=== PATIENT | male | born 1970 | race Caucasian/White ===

== ENCOUNTER 2016-07-25 10:57 | Emergency (ER) | payer OTHER ==
[~2016-07-25] VITALS: Ht 170.2 cm; Wt 59.0 kg
--- NOTE | 2016-07-25 11:09 | ED Lower Extremity ---
General Chief Complaint: Laceration Stated Complaint: NAIL IN L CALF Source: patient Exam Limitations: no limitations History of Present Illness Time seen by provider: 11:08 Initial Comments To ER from work at [employer] with reports of a nail to the posterior medial left calf from a nail gun. Tetanus was updated last year. Onset: just prior to arrival Severity: moderate Pain/Injury Location: left leg Modifying Factors: Worse With Movement Allergies and Home Medications Allergies Coded Allergies: Penicillins (Verified Allergy, Severe, 07/25/16) Home Medications No Active Prescriptions or Reported Meds Time Seen by Provider: 11:08 Constitutional: see HPI EENTM: see HPI Respiratory: no symptoms reported Cardiovascular: no symptoms reported Genitourinary: no symptoms reported Musculoskeletal: see HPI Skin: see HPI Psychiatric/Neurological: No Symptoms Reported Past Eumfpba-Cimxel-Nqniye Hx Patient Social History Recent Foreign Travel: No Contact w/Someone Who Travel: No Physical Exam Vital Signs Vital Sign - Last 12Hours 07/25/16 11:07 Temp 96.6 Pulse 102 Resp 22 B/P (MAP) 104/78 Pulse Ox 97 O2 Delivery Room Air Capillary Refill : General Appearance: WD/WN, no apparent distress HEENT: PERRL/EOMI, normal ENT inspection Neck: non-tender, full range of motion Respiratory: no respiratory distress, no accessory muscle use Gastrointestinal: normal bowel sounds, non tender, soft Hips: bilateral hip non-tender, bilateral hip normal inspection, bilateral hip normal range of motion Legs: bilateral leg normal range of motion, left leg pain, left leg soft tissue tenderness, left leg other (there is infected nail in the posterior medial proximal left calf. The surrounding is nice and soft without firmness. He is able to dorsiflex the great toe and has sensation of all of his toes and feet. He has a +2 in strength posterior tibial pulse.) Knees: bilateral knee non-tender, bilateral knee normal inspection, bilateral knee normal range of motion Ankles: bilateral ankle non-tender, bilateral ankle normal inspection, bilateral ankle normal range of motion Neurologic/Psychiatric: alert, normal mood/affect, oriented x 3 Skin: normal color, warm/dry I&D : I & D Procedure: betadine prep Progress The area around the nail puncture wound was anesthetized with 5 mL of 2 percent lidocaine without epinephrine. Surface area was cleaned with Betadine and nail head was grasped with forceps and removed with simple traction. Minimal oozing of blood from the puncture wound afterwards. Remain soft. He is able to feel all of his toes flex and extend them. Dorsalis pedis pulse remains +1 and posterior tibial pulse remains +2. Triple antibiotic ointment and a gauze dressing applied. Rocephin is infusing then we will discharge to home. Progress/Results/Core Measures Results/Orders My Orders Orders - ALPHONSO SIMON APRN Saline Lock/Iv-Start (07/25/16 11:06) Morphine Injection (Morphine Injection (07/25/16 11:15) Lidocaine 2% Injection 20 Ml (Xylocaine (07/25/16 11:15) Cefazolin Injection (Ancef Injection) (07/25/16 11:15) Tibia/Fibula, Left, 2 Views (07/25/16 11:09) Ceftriaxone Injection (Rocephin Injectio (07/25/16 11:30) Ceftriaxone Injection (Rocephin Injectio (07/25/16 11:29) Ns (Ivpb) (Sodium Chloride 0.9% Ivpb Bag (07/25/16 11:29) Medications Given in ED Current Medications Medications Dose Ordered Sig/Carmen Route Start Time Stop Time Status Last Admin Dose Admin Cefazolin Sodium 1000 mg/Sodium Chloride 50 ml @ 100 mls/hr ONCE ONCE IV 07/25/16 11:15 07/25/16 11:27 DC 07/25/16 11:21 100 MLS/HR Ceftriaxone Sodium 1000 mg/ Sodium Chloride 50 ml @ 100 mls/hr ONCE ONCE IV 07/25/16 11:30 07/25/16 11:59 07/25/16 11:36 100 MLS/HR Lidocaine HCl 20 ml ONCE ONCE INJ 07/25/16 11:15 07/25/16 11:16 DC 07/25/16 11:18 6 ML Morphine Sulfate 4 mg ONCE ONCE IVP 07/25/16 11:15 07/25/16 11:16 DC 07/25/16 11:17 4 MG Vital Signs/I&O Vital Sign - Last 12Hours 07/25/16 11:07 Temp 96.6 Pulse 102 Resp 22 B/P (MAP) 104/78 Pulse Ox 97 O2 Delivery Room Air Departure Impression Impression: Primary Impression: Soft tissues foreign body Disposition: HOME, SELF-CARE Condition: Stable Departure-Patient Inst. Decision time for Depature: 11:38 Referrals: NO,LOCAL PHYSICIAN (PCP/Family) Primary Care Physician Patient Instructions: NO INSTRUCTIONS GIVEN Add. Discharge Instructions: 1. Reasons to return to the emergency room: Increasing pain in the calf, swelling or firmness of the calf, tingling or loss of sensation to your foot or toes, increasing redness to the calf, fevers or chills 2. Antibiotics and pain medication as directed 3. Wear the walking boot for the next 2-3 days. You may shower and get the wound wet. Then reapply simple Band-Aid over this All discharge instructions reviewed with patient and/or family. Voiced understanding. Scripts Hydrocodone/Acetaminophen (Dexter 5-325 Tablet) 1 Each Tablet 1 EACH PO Q4H Y for PAIN-MODERATE TO SEVERE, #14 TAB Prov: ALPHONSO SIMON APRN 07/25/16 Clindamycin HCl (Clindamycin HCl) 300 Mg Capsule 300 MG PO TID, #12 CAP Prov: ALPHONSO SIMON APRN 07/25/16 ALPHONSO SIMON APRN Jul 25, 2016 11:09
[2016-07-25] MEDS ORDERED: LIDOCAINE 2% 20 ML (XYLOCAINE) VIAL INJ ONE (11:15)
[2016-07-25] MEDS ORDERED: ceFAZolin INJECTION 1,000 MG in NS (IVPB) 50 ML IV ONE (11:15)
[2016-07-25] MEDS ORDERED: morphine INJ 10 MG/ML 1ML (SYR OR VIAL) IVP ONE (11:15)
[2016-07-25] MEDS ORDERED: cefTRIAXone 1 GM (ROCEPHIN) VIAL ONE (11:29)
[2016-07-25] MEDS ORDERED: NS (IVPB) 50 ML ONE (11:29)
[2016-07-25] MEDS ORDERED: cefTRIAXone INJECTION 1,000 MG in NS (IVPB) 50 ML IV ONE (11:30)
--- NOTE | 2016-07-25 11:35 | Diagnostic Imaging Report ---
INDICATION: Shot with nail gun in leg. AP and lateral views of the left tibia and fibula are performed. Metallic nail is visualized in the soft tissues posteriorly in the upper calf. The bony structures appear unremarkable. IMPRESSION: Metallic foreign body in the soft tissues in the posterior calf superiorly. No bony involvement. Dictated by: Dictated on workstation # [id number]
[2016-07-25] MEDS ORDERED: HYDR-757 PO (11:42)
[2016-07-25] MEDS ORDERED: CLIN300C11 PO (11:42)
[2016-07-25] MEDS ORDERED: TETANUS,DIPTH,PERTUSS P/F (BOOSTRIX) 0.5 ML VIAL IM ONE (12:00)
[2016-07-25 12:08] VITALS: BP 94/68
== END 2016-07-25 12:08 | disposition home or self-care (01) ==
LOC: EDUNIT# 10:57 → ER 11:00
DX: S81.842A Puncture wound with foreign body, left lower leg, initial encounter (principal); W34.09XA Accidental discharge from other specified firearms, initial encounter
CPT/HCPCS: 73590; 90715

== ENCOUNTER 2016-12-02 15:44 | Emergency (ER) | payer SELFPAY ==
[~2016-12-02] VITALS: Ht 170.2 cm; Wt 59.0 kg
[~2016-12-02 15:44] MED LIST: CLIN300C11 PO; HYDR-757 PO
--- NOTE | 2016-12-02 16:54 | Diagnostic Imaging Report ---
PROCEDURE: CT head and CT cervical spine without contrast. TECHNIQUE: Multiple contiguous axial images were obtained through the brain and cervical spine without the use of intravenous contrast. Sagittal and coronal reformations through the cervical spine were then performed. INDICATION: Head and neck pain after fall off of roof five days ago. COMPARISON: None available. FINDINGS: CT head: No hyperdense hemorrhage or space-occupying mass. No hydrocephalus or midline shift. Rapp-white matter differentiation is well preserved. Basilar cisterns are widely patent. No acute skull fracture. Mastoid air cells are clear. Patchy mucosal thickening of the ethmoid air cells. Other paranasal sinuses are clear. Orbits are unremarkable. CT cervical spine: No acute fracture or traumatic malalignment. Intervertebral disc space heights are well maintained. Minimal disc bulging at C5-C6. No moderate or high-grade spinal stenosis. No cervical lymphadenopathy. Lung apices are clear. IMPRESSION: 1. No acute intracranial process or skull fracture. 2. No acute fracture or traumatic malalignment of the cervical spine. Dictated by: Dictated on workstation # [id number]
--- NOTE | 2016-12-02 17:03 | ED Fall/Injury ---
General Chief Complaint: Trauma-Non Activation Stated Complaint: FELL OFF A ROOF/HEAD/NECK PAIN Nursing Triage Note: C/O FELL OFF A ROOF ON TUES. C/O HEAD/NECK/LOW BACK PAIN. 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 PT ACTS VERY FIGIDTY. ADMITS TO RECENT METHAMPHETAMINE USE. Source: patient Exam Limitations: no limitations History of Present Illness Time seen by provider: 16:20 Initial Comments This 46-year-old man presents to the emergency room with complaints of headache after falling off a 12 or 13 foot roof 6 days ago. He is uncertain of loss of consciousness but states if he did lose consciousness it was very brief. He has had some posterior headache and mild neck pain. He reports falling while walking recently. He has taken some ibuprofen and tramadol without benefit but the last dose was about 3 days ago. He has had some recent nausea. He reports bowel movements have been running. He denies any recent alcohol use but was using methamphetamines around the time of the incident. He has dystonic movements at present consistent with methamphetamine use. C-collar was placed during assessment. Location Injury Occurred: HOME RESIDENCE Allergies and Home Medications Allergies Coded Allergies: Penicillins (Verified Allergy, Severe, 07/25/16) Constitutional: no symptoms reported Eyes: No Symptoms Reported Ears, Nose, Mouth, Throat: no symptoms reported Respiratory: no symptoms reported Cardiovascular: no symptoms reported Gastrointestinal: see HPI Genitourinary: no symptoms reported Musculoskeletal: see HPI Skin: no symptoms reported Psychiatric/Neurological: See HPI Past Mzprrkg-Rblatw-Oyyjdw Hx Patient Social History Alcohol Use: Occasionally Uses Number of Drinks Today: AA Alcohol Beverage of Choice: Beer Recreational Drug Use: Yes Drug of Choice: methamphetamines Smoking Status: Current Everyday Smoker Type Used: Cigarettes 2nd Hand Smoke Exposure: Yes Recent Foreign Travel: No Contact w/Someone Who Travel: No Recent Infectious Disease Expo: No Recent Hopitalizations: No Immunizations Up To Date Tetanus Booster (TDap): Less than 5yrs Seasonal Allergies Seasonal Allergies: No Surgeries History of Surgeries: No Respiratory History of Respiratory Disorde: Yes Respiratory Disorders: Chronic Bronchitis Cardiovascular History of Cardiac Disorders: No Neurological History of Neurological Disord: Yes Neurological Disorders: Neuropathy Genitourinary History of Genitourinary Disor: No Gastrointestinal History of Gastrointestinal Di: No Musculoskeletal History of Musculoskeletal Dis: Yes Musculoskeletal Disorders: Chronic Back Pain Endocrine History of Endocrine Disorders: No HEENT History of HEENT Disorders: Yes ("VISION PROBLEMS") Cancer History of Cancer: No Psychosocial History of Psychiatric Problem: No Integumentary History of Skin or Integumenta: No Blood Transfusions History of Blood Disorders: No Physical Exam Vital Signs Vital Sign - Last 12Hours 12/02/16 16:44 Temp 97.5 Pulse 70 Resp 16 B/P (MAP) 123/81 O2 Delivery Room Air Capillary Refill : Less Than 3 Seconds General Appearance: WD/WN HEENT: PERRL/EOMI, normal ENT inspection, TMs normal, pharynx normal Neck: supple, normal inspection, tender midline (minimal) Cardiovascular: regular rate, rhythm, no edema, no murmur Respiratory: chest non-tender, lungs clear, normal breath sounds, no respiratory distress, no accessory muscle use Gastrointestinal: normal bowel sounds, non tender, soft Extremities: normal inspection, no pedal edema 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/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 as tested, no motor/sensory deficits, alert, normal mood/affect, oriented x 3, other (dystonic movements) Skin: normal color, warm/dry, other (healing laceration on the palm of the right hand) [place] Coma Score Best Eye Response: (4) Open Spontaneously Best Verbal Response: (5) Oriented Best Motor Response: (6) Obeys Commands [place] Total: 15 Progress/Results/Core Measures Results/Orders My Orders Orders - TERRI COWAN MD Ct Head/Cervical Spine Wo (12/02/16 16:27) Ketorolac Injection (Toradol Injection) (12/02/16 17:15) Vital Signs/I&O Vital Sign - Last 12Hours 12/02/16 12/02/16 16:44 16:52 Temp 97.5 97.5 Pulse 70 70 Resp 16 16 B/P (MAP) 123/81 123/81 (95) O2 Delivery Room Air Room Air Blood Pressure Mean: 95 Progress Note : Time: 17:11 Progress Note C-collar was removed after review of CT imaging. Patient has a healing laceration on the right hand. For this reason I inquired about tetanus immunization. He reports he received tetanus immunization within the last year. Patient was resting comfortably at the time of c-collar removal. He did request something for further management of his pain. Toradol 30 mg IM was administered. Diagnostic Imaging Diagonstic Imaging: CT Plain Films/CT/US/NM/MRI: c-spine, head Comments CT head and C-spine viewed by me and report reviewed. See report below: NAME: SATHISH DEL ROSARIO [facility] REC#: [id number] PT STATUS: REG ER : 1970 PHYSICIAN: TERRI COWAN MD ADMIT DATE: 12/02/16/ER Signed Date of Exam: 12/02/16 CT HEAD/CERVICAL SPINE WO PROCEDURE: CT head and CT cervical spine without contrast. TECHNIQUE: Multiple contiguous axial images were obtained through the brain and cervical spine without the use of intravenous contrast. Sagittal and coronal reformations through the cervical spine were then performed. INDICATION: Head and neck pain after fall off of roof five days ago. COMPARISON: None available. FINDINGS: CT head: No hyperdense hemorrhage or space-occupying mass. No hydrocephalus or midline shift. Rapp-white matter differentiation is well preserved. Basilar cisterns are widely patent. No acute skull fracture. Mastoid air cells are clear. Patchy mucosal thickening of the ethmoid air cells. Other paranasal sinuses are clear. Orbits are unremarkable. CT cervical spine: No acute fracture or traumatic malalignment. Intervertebral disc space heights are well maintained. Minimal disc bulging at C5-C6. No moderate or high-grade spinal stenosis. No cervical lymphadenopathy. Lung apices are clear. IMPRESSION: 1. No acute intracranial process or skull fracture. 2. No acute fracture or traumatic malalignment of the cervical spine. Dictated by: Dictated on workstation # [id number] Dict: 12/02/161645 Trans: 12/02/161655 Interpreted by: JAMEY PIERRE MD Electronically signed by: JAMEY PIERRE MD 12/02/161655 Departure Impression Impression: Primary Impression: Fall from roof Qualified Codes: W13.2XXA - Fall from, out of or through roof, initial encounter Additional Impressions: Headache Qualified Codes: R51 - Headache Methamphetamine abuse Disposition: 01 HOME, SELF-CARE Condition: Improved Departure-Patient Inst. Decision time for Depature: 17:05 Referrals: NO,LOCAL PHYSICIAN (PCP/Family) Primary Care Physician Patient Instructions: Methamphetamine, Minor Head Injury (DC) Add. Discharge Instructions: Drink plenty of clear liquids. You may take ibuprofen up to 600 mg every 6 hours as needed for pain. Add Tylenol (acetaminophen) up to 1000 mg every 6 hours as needed for additional pain relief. Avoid excessive exertion or stimulation while headache persists. Discontinue use of methamphetamines as use of methamphetamines is generally very destructive to your health and will likely make your headache worse. All discharge instructions reviewed with patient and/or family. Voiced understanding. TERRI COWAN MD Dec 02, 2016 17:03
[2016-12-02] MEDS ORDERED: KETOROLAC 60 MG/2 ML VIAL IM ONE (17:15)
[2016-12-02 17:19] VITALS: BP 122/76
== END 2016-12-02 17:19 | disposition home or self-care (01) ==
LOC: EDUNIT# 15:44 → ER 15:46
DX: R51 Headache (principal); F15.10 Other stimulant abuse, uncomplicated; J42 Unspecified chronic bronchitis; F17.210 Nicotine dependence, cigarettes, uncomplicated; W13.2XXA Fall from, out of or through roof, initial encounter
CPT/HCPCS: 70450; 72125; 99284

== ENCOUNTER 2017-06-14 10:13 | Emergency (ER) | payer OTHER ==
[~2017-06-14] VITALS: Ht 170.2 cm; Wt 63.5 kg
--- OUTSIDE RECORDS SUMMARY | 2017-06-14 10:19 | XMS REPORT ---
Author Author JIMY ALEJANDRE Organization [facility] Address [address] [place] [address] Care Team Providers Care Leasing Assistant Name Role Phone CHERISE ALEJANDREE Unavailable PROBLEMS Type Condition ICD9-CM Code QLQ12-OK Code Onset Dates Condition Status SNOMED Code Problem Erectile dysfunction, unspecified erectile dysfunction type N52.9 Active 109071344 Problem Chronic hepatitis C without hepatic coma B18.2 Active 328749968 Problem Neuropathy G62.9 Active 006915891 Problem Other stimulant dependence, uncomplicated F15.20 Active 156724354 Problem Unspecified psychosis F29 Active 69316368 Problem Hepatitis C virus infection without hepatic coma, unspecified chronicity B19.20 Active 90140694 Problem Callus L84 Active 342577115 Problem Tobacco abuse Z72.0 Active 401476316 Problem Psychophysiological insomnia F51.04 Active 121473296 Problem Low back pain M54.5 Active 990431723 Problem Other chronic pain G89.29 Active 70515333 Problem Dysthymia F34.1 Active 54516075 Problem Methamphetamine use disorder, severe, 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 Active 121098321 Problem Substance abuse F19.10 Active 78646843 Problem Attention deficit R41.840 Active 50670965 Problem Hip pain, right M25.551 Active 787056053363490 Problem Gastroesophageal reflux disease with esophagitis K21.0 Active 735758311 ALLERGIES Substance Reaction Event Type Date Status Penicillin V Potassium Unknown Drug Allergy Apr, Active Lyrica hives Drug Allergy Apr, Active BusPIRone HCl Unknown Drug Allergy Apr, Active SOCIAL HISTORY Never Assessed PLAN OF CARE Activity Details Follow Up 4 Weeks Reason:procedure callus removal uds VITAL SIGNS Height 67 in 2016-05-02 Weight 136.1 lbs 2016-05-02 Temperature 98.1 degrees Fahrenheit 2016-05-02 Heart Rate 100 bpm 2016-05-02 Respiratory Rate 20 2016-05-02 BMI 21.31 kg/m2 2016-05-02 Blood pressure systolic 126 mmHg 2016-05-02 Blood pressure diastolic 86 mmHg 2016-05-02 MEDICATIONS Medication Instructions Dosage Frequency Start Date End Date Duration Status Omeprazole 20 MG Orally Once a day 1 capsule 24h Active Seroquel 100 MG Orally Once a day 1 tablet 24h 30 day(s) Active Bactrim DS 800-160 MG Orally Twice a day 1 tablet 12h Apr,Apr 10 day(s) Active Nabumetone 750 MG Orally Twice a day 1 tablet 12h 07 Dec, 2015 Active BuPROPion HCl 100 MG Orally Once a day 1 tablet 24h Active Amitriptyline HCl 25 MG Orally Once a day 1 tablet 24h 10 Apr, 2016 30 day(s) Active RESULTS No Results PROCEDURES No Known procedures IMMUNIZATIONS No Known Immunizations MEDICAL (GENERAL) HISTORY Type Description Date Medical History ADHD - combined type Medical History alcohol abuse Medical History carpal tunnel Medical History Fibromyalgia Medical History drug abuse Medical History Hepatitis C- questions this Medical History neuropathy Surgical History right hip surgery Surgical History tubes in ears
--- OUTSIDE RECORDS SUMMARY | 2017-06-14 10:19 | XMS REPORT ---
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 Active 496108853 Problem Low back pain M54.5 Active 181620654 Problem Other chronic pain G89.29 Active 82873333 Problem Substance abuse F19.10 Active 96849972 Problem Neuropathy G62.9 Active 031944978 Problem Chronic hepatitis C without hepatic coma B18.2 Active 929570556 Problem Gastroesophageal reflux disease with esophagitis K21.0 Active 694622787 Problem Dysthymia F34.1 Active 12222577 Problem Callus L84 Active 716968311 Problem Erectile dysfunction, unspecified erectile dysfunction type N52.9 Active 774190817 ALLERGIES Substance Reaction Event Type Date Status Penicillin V Potassium Unknown Drug Allergy Feb, Active Lyrica hives Drug Allergy Feb, Active BusPIRone HCl Unknown Drug Allergy Feb, Active SOCIAL HISTORY No smoking Hx information available PLAN OF CARE Activity Details Follow Up 4 Weeks Reason: VITAL SIGNS Height 67 in 2016-03-16 Weight 131.9 lbs 2016-03-16 Heart Rate 118 bpm 2016-03-16 Respiratory Rate 20 2016-03-16 BMI 20.66 kg/m2 2016-03-16 Blood pressure systolic 109 mmHg 2016-03-16 Blood pressure diastolic 88 mmHg 2016-03-16 MEDICATIONS Medication Instructions Dosage Frequency Start Date End Date Duration Status Chantix Starting Month Adonay 0.5 MG X 11 & 1 MG X 42 Orally Once a day as directed 24h Dec, Active Cymbalta 60 mg Orally Once a day 2 capsule 24h Dec, 30 days Active Seroquel 50 mg Orally Once a day 1 tablet 24h 30 day(s) Active Omeprazole 20 mg Orally Once a day 2 capsules 24h 30 Dec, 2015 30 day(s ) Active Nabumetone 750 MG Orally Twice a day 1 tablet 12h 07 Dec, 2015 Active RESULTS No Results PROCEDURES Procedure Date Ordered Related Diagnosis Body Site Office Visit, Est Pt., Level 2 Mar 16, 2016 IMMUNIZATIONS No Known Immunizations
--- OUTSIDE RECORDS SUMMARY | 2017-06-14 10:19 | XMS REPORT ---
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 Active 130035654 Problem Unspecified psychosis F29 Active 80244527 Problem Hepatitis C virus infection without hepatic coma, unspecified chronicity B19.20 Active 28325826 Problem Callus L84 Active 488895140 Problem Tobacco abuse Z72.0 Active 714342509 Problem Psychophysiological insomnia F51.04 Active 231150764 Problem Low back pain M54.5 Active 839831934 Problem Other chronic pain G89.29 Active 31801617 Problem Dysthymia F34.1 Active 48914140 Problem Methamphetamine use disorder, severe, 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 Active 697956260 Problem Substance abuse F19.10 Active 56545924 Problem Attention deficit R41.840 Active 83090405 Problem Hip pain, right M25.551 Active 375024726661523 Problem Gastroesophageal reflux disease with esophagitis K21.0 Active 655383151 ALLERGIES No Information SOCIAL HISTORY Never Assessed PLAN OF CARE Activity Details Follow Up 4 Weeks Reason: VITAL SIGNS Height 67 in 2016-04-27 Weight 133.1 lbs 2016-04-27 Temperature 97.4 degrees Fahrenheit 2016-04-27 Heart Rate 104 bpm 2016-04-27 Respiratory Rate 20 2016-04-27 BMI 20.84 kg/m2 2016-04-27 Blood pressure systolic 116 mmHg 2016-04-27 Blood pressure diastolic 82 mmHg 2016-04-27 MEDICATIONS Medication Instructions Dosage Frequency Start Date End Date Duration Status Amitriptyline HCl 25 MG Orally Once a day 1 tablet 24h 10 Apr, 2016 30 day(s) Active Seroquel 100 MG Orally Once a day 1 tablet 24h 30 day(s) Active RESULTS No Results PROCEDURES [...]
--- OUTSIDE RECORDS SUMMARY | 2017-06-14 10:20 | XMS REPORT ---
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 Active 117487494 Problem Unspecified psychosis F29 Active 64850769 Problem Hepatitis C virus infection without hepatic coma, unspecified chronicity B19.20 Active 70881839 Problem Callus L84 Active 767883975 Problem Tobacco abuse Z72.0 Active 673911051 Problem Psychophysiological insomnia F51.04 Active 351888968 Problem Low back pain M54.5 Active 907085905 Problem Other chronic pain G89.29 Active 23168469 Problem Dysthymia F34.1 Active 57193828 Problem Methamphetamine use disorder, severe, 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 Active 259242179 Problem Substance abuse F19.10 Active 86938745 Problem Attention deficit R41.840 Active 31325951 Problem Hip pain, right M25.551 Active 825358510568911 Problem Gastroesophageal reflux disease with esophagitis K21.0 Active 100322786 ALLERGIES Substance Reaction Event Type Date Status [...] Date End Date Duration Status Omeprazole 20 mg Orally Once a day 2 capsules 24h 30 Active Chantix Starting Month Adonay 0.5 MG X 11 & 1 MG X 42 Orally Once a day as directed 24h 30 Dec, 2015 Active Diclofenac Potassium 50 mg Orally Twice a day 1 tablet 12h 10 Apr, 2016 Jul, 90 days Active Gabapentin 300 MG Orally 2 times a day 1 capsule 12h 10 Apr, 2016 30 day(s) Active Nabumetone 750 MG Orally Twice a day 1 tablet 12h 07 Dec, 2015 Active RESULTS Name Result Date Reference Range TSH 2016-04-27 TSH 1.900 0.450-4.500 CBC 2016-04-27 WBC 7.3 3.4-10.8 RBC 4.74 4.14-5.80 Hemoglobin 14.7 12.6-17.7 Hematocrit 41.6 37.5-51.0 MCV 88 79-97 MCH 31.0 26.6-33.0 MCHC 35.3 31.5-35.7 RDW 13.0 12.3-15.4 Platelets 236 150-379 Neutrophils 65 Lymphs 23 Monocytes 8 Eos 3 Basos 1 Neutrophils (Absolute) 4.8 1.4-7.0 Lymphs (Absolute) 1.7 0.7-3.1 Monocytes(Absolute) 0.6 0.1-0.9 Eos (Absolute) 0.2 0.0-0.4 Baso (Absolute) 0.0 0.0-0.2 Immature Granulocytes 0 Immature Grans (Abs) 0.0 0.0-0.1 LIPID PANEL 2016-04-27 Cholesterol, Total 197 100-199 Triglycerides 253 0-149 HDL Cholesterol 45 >39 VLDL Cholesterol Jacky 51 5-40 LDL Cholesterol Calc 101 0-99 CMP 2016-04-27 Glucose, Serum 88 65-99 BUN 15 6-24 Creatinine, Serum 0.89 0.76-1.27 eGFR If NonAfricn Am 104 >59 eGFR If Africn Am 120 >59 BUN/Creatinine Ratio 17 9-20 Sodium, Serum 140 134-144 Potassium, Serum 4.1 3.5-5.2 Chloride, Serum 98 96-106 Carbon Dioxide, Total 25 18-29 Calcium, Serum 9.3 8.7-10.2 Protein, Total, Serum 6.8 6.0-8.5 Albumin, Serum 4.3 3.5-5.5 Globulin, Total 2.5 1.5-4.5 A/G Ratio 1.7 1.1-2.5 Bilirubin, Total 0.4 0.0-1.2 Alkaline Phosphatase, S 137 39-117 AST (SGOT) 25 0-40 ALT (SGPT) 37 0-44 HEPATITIS PROFILE 2016-04-27 Hep A Ab, IgM Negative Negative HBsAg Screen Negative Negative Hep B Core Ab, IgM Negative Negative Hep C Virus Ab >11.0 0.0-0.9 URINE DRUG SCREEN (IN HOUSE) Lot # Exp date Control COCAINE AMPH MTD THC OPIATE BENZO PCP BAR OXY MAMP TCA BUP MDMA PROCEDURES Procedure Date Ordered Result Body Site DRUG TEST PRSMV DIR OPT OBS April 27, 2016 COMPLETE CBC W/AUTO DIFF WBC April 27, 2016 No Charge April 27, 2016 VENIPUNCT, ROUTINE* April 27, 2016 ASSAY THYROID STIM HORMONE April 27, 2016 COMPREHEN METABOLIC PANEL April 27, 2016 ACUTE HEPATITIS PANEL April 27, 2016 LIPID PANEL April 27, 2016 IMMUNIZATIONS No Known Immunizations MEDICAL (GENERAL) HISTORY Type Description Date Medical History ADHD - combined type Medical History alcohol abuse Medical History carpal tunnel Medical History Fibromyalgia Medical History drug abuse Medical History Hepatitis C- questions this Medical History neuropathy Surgical History right hip surgery Surgical History tubes in ears
--- OUTSIDE RECORDS SUMMARY | 2017-06-14 10:20 | XMS REPORT ---
Author Author JIMY ALEJANDRE Organization [facility] Address [address] [place] [address] Care Team Providers Care Facility Coordinator Name Role Phone ALEJANDRE JIMY Unavailable PROBLEMS Type Condition ICD9-CM Code SPH62-IL Code Onset Dates Condition Status SNOMED Code Problem Dysthymia F34.1 Active 51462014 Problem Erectile dysfunction, unspecified erectile dysfunction type N52.9 Active 465352999 Problem Gastroesophageal reflux disease with esophagitis K21.0 Active 079359860 Problem Tobacco abuse Z72.0 Active 241692424 Problem Psychophysiological insomnia F51.04 Active 485893484 Problem Callus L84 Active 649661101 Problem Chronic hepatitis C without hepatic coma B18.2 Active 274789589 Problem Hepatitis C virus infection without hepatic coma, unspecified chronicity B19.20 Active 52085904 Problem Neuropathy G62.9 Active 021272898 Problem Substance abuse F19.10 Active 04831282 Problem Hip pain, right M25.551 Active 444403139419654 Problem Low back pain M54.5 Active 332376769 Problem Methamphetamine use disorder, severe, 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 Active 521930615 Problem Other chronic pain G89.29 Active 14087503 Problem Attention deficit R41.840 Active 53493081 ALLERGIES No Information SOCIAL HISTORY Never Assessed PLAN OF CARE VITAL SIGNS MEDICATIONS No Known Medications RESULTS No Results PROCEDURES No Known procedures [...]
--- OUTSIDE RECORDS SUMMARY | 2017-06-14 10:20 | XMS REPORT ---
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 Active 786154106 Problem Unspecified psychosis F29 Active 37188567 Problem Hepatitis C virus infection without hepatic coma, unspecified chronicity B19.20 Active 92361051 Problem Callus L84 Active 718461869 Problem Tobacco abuse Z72.0 Active 626844182 Problem Psychophysiological insomnia F51.04 Active 217451987 Problem Low back pain M54.5 Active 198878417 Problem Other chronic pain G89.29 Active 62251516 Problem Dysthymia F34.1 Active 03920384 Problem Methamphetamine use disorder, severe, 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 Active 827209490 Problem Substance abuse F19.10 Active 87899781 Problem Attention deficit R41.840 Active 26457680 Problem Hip pain, right M25.551 Active 428540379388591 Problem Gastroesophageal reflux disease with esophagitis K21.0 Active 358047947 ALLERGIES No Information SOCIAL HISTORY Never Assessed PLAN OF CARE VITAL SIGNS MEDICATIONS Unknown Medications RESULTS No Results PROCEDURES No Known [...]
--- OUTSIDE RECORDS SUMMARY | 2017-06-14 10:21 | XMS REPORT | Continuity of Care Document ---
Author Author [facility] Address Unknown Phone Unavailable Allergies Active Description Code Type Severity Reaction Onset Reported/Identified Relationship to Patient Clinical Status Yes Penicillins Drug Allergy N/A N/A 10/03/2009 Yes Penicillins Drug Allergy 10/03/2009 Yes buspirone 10 mg tablet Drug Allergy N/A N/A 01/07/2012 Yes Chantix 1 mg tablet Drug Allergy N/A N/A 01/07/2012 Yes buspirone 10 mg tablet Drug Allergy 01/07/2012 Yes Chantix 1 mg tablet Drug Allergy 01/07/2012 Yes No Known Drug Allergies [id number] Drug Allergy Unknown N/A 07/25/2016 Yes Penicillins [id number] Drug Allergy Severe N/A 07/25/2016 Medications There is no data. Problems Date Dx Coded Attending Type Code Diagnosis Diagnosed By 10/03/2009 RUSSEL MESA APRN 305.1 NONDEPENDENT ABUSE OF DRUGS, TOBACCO USE DISORDER 10/03/2009 J CARLOS SILVAS, SADE 305.1 NONDEPENDENT ABUSE OF DRUGS, TOBACCO USE DISORDER 10/03/2009 J CARLOS SILVAS, SADE 305.1 NONDEPENDENT ABUSE OF DRUGS, TOBACCO USE DISORDER 10/03/2009 RUSSEL MESA APRN 305.1 NONDEPENDENT ABUSE OF DRUGS, TOBACCO USE DISORDER 10/03/2009 305.1 NONDEPENDENT ABUSE OF DRUGS, TOBACCO USE DISORDER 10/03/2009 305.1 NONDEPENDENT ABUSE OF DRUGS, TOBACCO USE DISORDER 10/03/2009 MIGDALIA EVERETT APRN 305.1 NONDEPENDENT ABUSE OF DRUGS, TOBACCO USE DISORDER 10/03/2009 305.1 NONDEPENDENT ABUSE OF DRUGS, TOBACCO USE DISORDER 10/03/2009 305.1 NONDEPENDENT ABUSE OF DRUGS, TOBACCO USE DISORDER 10/03/2009 ELENA MORGAN DO 305.1 NONDEPENDENT ABUSE OF DRUGS, TOBACCO USE DISORDER 10/03/2009 MIGDALIA EVERETT APRN 305.1 NONDEPENDENT ABUSE OF DRUGS, TOBACCO USE DISORDER 10/03/2009 ELENA MORGAN DO K 305.1 NONDEPENDENT ABUSE OF DRUGS, TOBACCO USE DISORDER 12/05/2011 RUSSEL MESA APRN 786.05 SHORTNESS OF BREATH 12/05/2011 WHITMAN DDS, SADE 786.05 SHORTNESS OF BREATH 12/05/2011 WHITMAN DDS, SADE 786.05 SHORTNESS OF BREATH 12/05/2011 RUSSEL MESA APRN 786.05 SHORTNESS OF BREATH 12/05/2011 786.05 SHORTNESS OF BREATH 12/05/2011 786.05 SHORTNESS OF BREATH 12/05/2011 MIGDALIA EVERETT APRN 786.05 SHORTNESS OF BREATH 12/05/2011 786.05 SHORTNESS OF BREATH 12/05/2011 786.05 SHORTNESS OF BREATH 12/05/2011 ELENA MORGAN DO K 786.05 SHORTNESS OF BREATH 12/05/2011 MIGDALIA EVERETT APRN 786.05 SHORTNESS OF BREATH 12/05/2011 ELENA MORGAN DO 786.05 SHORTNESS OF BREATH 01/07/2012 RUSSEL MESA APRN 790.29 HYPERGLYCEMIA 01/07/2012 WHITMAN DDS, SADE 790.29 HYPERGLYCEMIA 01/07/2012 WHITMAN DDS, SADE 790.29 HYPERGLYCEMIA 01/07/2012 RUSSEL MESA APRN 790.29 HYPERGLYCEMIA 01/07/2012 790.29 HYPERGLYCEMIA 01/07/2012 790.29 HYPERGLYCEMIA 01/07/2012 MIGDALIA EVERETT APRN 790.29 HYPERGLYCEMIA 01/07/2012 790.29 HYPERGLYCEMIA 01/07/2012 790.29 HYPERGLYCEMIA 01/07/2012 ELENA MORGAN DO K 790.29 HYPERGLYCEMIA 01/07/2012 MIGDALIA EVERETT APRN 790.29 HYPERGLYCEMIA 01/07/2012 MORGAN CHADD FORDA K 790.29 HYPERGLYCEMIA 01/19/2012 RUSSEL MESA APRN 719.43 PAIN IN JOINT INVOLVING FOREARM 01/19/2012 WHITMAN DDS, SADE 719.43 PAIN IN JOINT INVOLVING FOREARM 01/19/2012 WHITMAN DDS, SADE 719.43 PAIN IN JOINT INVOLVING FOREARM 01/19/2012 RUSSEL MESA APRN 719.43 PAIN IN JOINT INVOLVING FOREARM 01/19/2012 719.43 PAIN IN JOINT INVOLVING FOREARM 01/19/2012 719.43 PAIN IN JOINT INVOLVING FOREARM 01/19/2012 MIGDALIA EVERETT APRN 719.43 PAIN IN JOINT INVOLVING FOREARM 01/19/2012 719.43 PAIN IN JOINT INVOLVING FOREARM 01/19/2012 719.43 PAIN IN JOINT INVOLVING FOREARM 01/19/2012 ELENA MORGAN DO 719.43 PAIN IN JOINT INVOLVING FOREARM 01/19/2012 MIGDALIA EVERETT APRN 719.43 PAIN IN JOINT INVOLVING FOREARM 01/19/2012 ELENA MORGAN DO 719.43 PAIN IN JOINT INVOLVING FOREARM 01/30/2012 MOSHE FELICIANO RUSSEL AGUIRRE 303.90 ALCOHOLISM 01/30/2012 MOSHE FELICIANO RUSSEL AGUIRRE 314.01 ADHD COMBINED 01/30/2012 WHITMAN DDS, SADE 303.90 ALCOHOLISM 01/30/2012 WHITMAN DDS, SADE 314.01 ADHD COMBINED 01/30/2012 WHITMAN DDS, SADE 303.90 ALCOHOLISM 01/30/2012 WHITMAN DDS, SADE 314.01 ADHD COMBINED 01/30/2012 MOSHE FELICIANO RUSSEL AGUIRRE 303.90 ALCOHOLISM 01/30/2012 MOSHE FELICIANO RUSSEL AGUIRRE 314.01 ADHD COMBINED 01/30/2012 303.90 ALCOHOLISM 01/30/2012 314.01 ADHD COMBINED 01/30/2012 303.90 ALCOHOLISM 01/30/2012 314.01 ADHD COMBINED 01/30/2012 303.90 ALCOHOLISM 01/30/2012 314.01 ADHD COMBINED 01/30/2012 303.90 ALCOHOLISM 01/30/2012 314.01 ADHD COMBINED 01/30/2012 ELENA MORGAN DO 303.90 ALCOHOLISM 01/30/2012 ELENA MORGAN DO K 314.01 ADHD COMBINED 01/30/2012 MIGDALIA EVERETT APRN 303.90 ALCOHOLISM 01/30/2012 MIGDALIA EVERETT APRN 314.01 ADHD COMBINED 01/30/2012 ELENA MORGAN DO K 303.90 ALCOHOLISM 01/30/2012 ELENA MORGAN DO K 314.01 ADHD COMBINED 03/11/2012 WHITMAN DDS, SADE V58.69 MEDICATION HIGH RISK 03/11/2012 WHITMAN DDS, SADE V58.69 MEDICATION HIGH RISK 03/11/2012 MOSHE FELICIANO RUSSEL CARLA V58.69 MEDICATION HIGH RISK 03/11/2012 V58.69 MEDICATION HIGH RISK 03/11/2012 V58.69 MEDICATION HIGH RISK 03/11/2012 V58.69 MEDICATION HIGH RISK 03/11/2012 V58.69 MEDICATION HIGH RISK 03/11/2012 CHADD MORGAN DOA K V58.69 MEDICATION HIGH RISK 03/11/2012 MIGDALIA EVERETT APRN V58.69 MEDICATION HIGH RISK 03/11/2012 MORGAN DO ELENA K V58.69 MEDICATION HIGH RISK 05/15/2012 MOSHE FELICIANO RUSSEL AGUIRRE 304.90 SA OTHER SUB ABUSE 05/15/2012 304.90 SA OTHER SUB ABUSE 05/15/2012 304.90 SA OTHER SUB ABUSE 05/15/2012 304.90 SA OTHER SUB ABUSE 05/15/2012 304.90 SA OTHER SUB ABUSE 05/15/2012 MORGAN DO ELENA K 304.90 SA OTHER SUB ABUSE 05/15/2012 MIGDALIA EVERETT APRN 304.90 SA OTHER SUB ABUSE 05/15/2012 MORGAN DO ELENA K 304.90 SA OTHER SUB ABUSE 07/11/2012 V15.82 Nicotine abuse 07/11/2012 V15.82 Nicotine abuse 07/11/2012 V15.82 Nicotine abuse 07/11/2012 V15.82 Nicotine abuse 07/11/2012 MORGAN DO ELENA K V15.82 Nicotine abuse 07/11/2012 MIGDALIA EVERETT APRN V15.82 Nicotine abuse 07/11/2012 MORGAN DO ELENA K V15.82 Nicotine abuse 07/21/2012 726.71 TENDONITIS ACHILLES LEFT 07/21/2012 726.71 TENDONITIS ACHILLES LEFT 07/21/2012 726.71 TENDONITIS ACHILLES LEFT 07/21/2012 CHADD MORGAN DOA K 726.71 TENDONITIS ACHILLES LEFT 07/21/2012 MIGDALIA EVERETT APRN 726.71 TENDONITIS ACHILLES LEFT 07/21/2012 MORGAN DO ELENA K 726.71 TENDONITIS ACHILLES LEFT 11/06/2012 CHADD MORGAN DOA K 354.0 CARPAL TUNNEL SYNDROME 11/06/2012 MIGDALIA EVERETT APRN 354.0 CARPAL TUNNEL SYNDROME 11/06/2012 MORGAN DO ELENA K 354.0 CARPAL TUNNEL SYNDROME 07/25/2016 ALPHONSO SIMON APRN Ot S81.812A LACERATION WITHOUT FOREIGN BODY, LEFT LO 07/25/2016 ALPHONSO SIMON APRN Ot S81.842A PUNCTURE WOUND W FOREIGN BODY, LEFT LOWE 07/25/2016 ALPHONSO SIMON WELF[employer] CENTRE MANAGER Ot W34.09XA ACCIDENTAL DISCHARGE FROM OT [facility]RE[facility], 07/27/2016 ALPHONSO SIMON APRN Ot S81.812A LACERATION WITHOUT FOREIGN BODY, LEFT LO 07/27/2016 ALPHONSO SIMON APRN Ot S81.842A PUNCTURE WOUND W FOREIGN BODY, LEFT LOWE 07/27/2016 ALPHONSO SIMON APRN Ot W34.09XA ACCIDENTAL DISCHARGE FROM OT FIREARMS, 07/27/2016 ALPHONSO SIMON APRN Ot S81.812A LACERATION WITHOUT FOREIGN BODY, LEFT LO 07/27/2016 ALPHONSO SIMON APRN Ot S81.842A PUNCTURE WOUND W FOREIGN BODY, LEFT LOWE 07/27/2016 ALPHONSO SIMON APRN Ot W34.09XA ACCIDENTAL DISCHARGE FROM [facility], 12/02/2016 CAMRYN LEWIS, TERRI Matthews Ot F15.10 OTHER STIMULANT ABUSE, UNCOMPLICATED 12/02/2016 CAMRYN LEWIS, TERRI Matthews Ot F17.210 NICOTINE DEPENDENCE, CIGARETTES, UNCOMPL 12/02/2016 CAMRYN LEWIS, TERRI Matthews Ot J42 UNSPECIFIED CHRONIC BRONCHITIS 12/02/2016 CAMRYN LEWIS, TERRI Matthews Ot R51 HEADACHE 12/02/2016 CAMRYN LEWIS, TERRI Matthews Ot W13.2XXA FALL FROM, OUT OF OR THROUGH ROOF, INITI Procedures Code Description [place] [address] A1C (IN-HOUSE) 01/07/2012 Dwight Bernal 01/21/2012 82126 PSYCH DIAG INTER EXAM 03/18/2012 89738 URINE DRUG SCREEN (IN-HOUSE ) 05/15/2012 56316 PULMONARY FUNCTION TEST (IN- HOUSE) 07/11/2012 28256 RESPIRATORY FLOW VOLUME LOOP 07/11/2012 DWIGHT BERNAL 10/11/2012 74104 XRAY WRIST RIGHT 2 VIEWS 10/13/2012 62127 XRAY WRIST RIGHT 2 VIEWS 10/17/2012 Results Test Result Range CBC With Differential/Platelet - 12/26/15 09:15 WBC 8.3 x10E3/uL 3.4-10.8 RBC 5.55 x10E6/uL 4.14-5.80 Hemoglobin 16.9 g/dL 12.6-17.7 Hematocrit 50.7 % 37.5-51.0 MCV 91 fL 79-97 MCH 30.5 pg 26.6-33.0 MCHC 33.3 g/dL 31.5-35.7 RDW 13.2 % 12.3-15.4 Platelets 226 x10E3/uL 150-379 Neutrophils 67 % Lymphs 22 % Monocytes 7 % Eos 3 % Basos 1 % Neutrophils (Absolute) 5.6 x10E3/uL 1.4-7.0 Lymphs (Absolute) 1.9 x10E3/uL 0.7-3.1 Monocytes(Absolute) 0.6 x10E3/uL 0.1-0.9 Eos (Absolute) 0.3 x10E3/uL 0.0-0.4 Baso (Absolute) 0.1 x10E3/uL 0.0-0.2 Immature Granulocytes 0 % Immature Grans (Abs) 0.0 x10E3/uL 0.0-0.1 Comp. Metabolic Panel (14) - 12/26/15 09:15 Glucose, Serum 99 mg/dL 65-99 BUN 10 mg/dL 6-24 Creatinine, Serum 0.84 mg/dL 0.76-1.27 eGFR If NonAfricn Am 107 mL/min/1.73 >59 eGFR If Africn Am 124 mL/min/1.73 >59 BUN/Creatinine Ratio 12 9-20 Sodium, Serum 140 mmol/L 136-144 Potassium, Serum 4.7 mmol/L 3.5-5.2 Chloride, Serum 97 mmol/L 97-106 Carbon Dioxide, Total 28 mmol/L 18-29 Calcium, Serum 9.7 mg/dL 8.7-10.2 Protein, Total, Serum 6.4 g/dL 6.0-8.5 Albumin, Serum 4.5 g/dL 3.5-5.5 Globulin, Total 1.9 g/dL 1.5-4.5 A/G Ratio 2.4 1.1-2.5 Bilirubin, Total 0.3 mg/dL 0.0-1.2 Alkaline Phosphatase, S 129 IU/L 39-117 AST (SGOT) 21 IU/L 0-40 ALT (SGPT) 34 IU/L 0-44 TSH - 12/26/15 09:15 TSH 2.010 uIU/mL 0.450-4.500 Prostate-Specific Ag, Serum - 12/26/15 09:15 Prostate Specific Ag, Serum 0.7 ng/mL 0.0-4.0 CBC With Differential/Platelet - 04/27/16 15:34 WBC 7.3 x10E3/uL 3.4-10.8 RBC 4.74 x10E6/uL 4.14-5.80 Hemoglobin 14.7 g/dL 12.6-17.7 Hematocrit 41.6 % 37.5-51.0 MCV 88 fL 79-97 MCH 31.0 pg 26.6-33.0 MCHC 35.3 g/dL 31.5-35.7 RDW 13.0 % 12.3-15.4 Platelets 236 x10E3/uL 150-379 Neutrophils 65 % Lymphs 23 % Monocytes 8 % Eos 3 % Basos 1 % Neutrophils (Absolute) 4.8 x10E3/uL 1.4-7.0 Lymphs (Absolute) 1.7 x10E3/uL 0.7-3.1 Monocytes(Absolute) 0.6 x10E3/uL 0.1-0.9 Eos (Absolute) 0.2 x10E3/uL 0.0-0.4 Baso (Absolute) 0.0 x10E3/uL 0.0-0.2 Immature Granulocytes 0 % Immature Grans (Abs) 0.0 x10E3/uL 0.0-0.1 Comp. Metabolic Panel (14) - 04/27/16 15:34 Glucose, Serum 88 mg/dL 65-99 BUN 15 mg/dL 6-24 Creatinine, Serum 0.89 mg/dL 0.76-1.27 eGFR If NonAfricn Am 104 mL/min/1.73 >59 eGFR If Africn Am 120 mL/min/1.73 >59 BUN/Creatinine Ratio 17 9-20 Sodium, Serum 140 mmol/L 134-144 Potassium, Serum 4.1 mmol/L 3.5-5.2 Chloride, Serum 98 mmol/L 96-106 Carbon Dioxide, Total 25 mmol/L 18-29 Calcium, Serum 9.3 mg/dL 8.7-10.2 Protein, Total, Serum 6.8 g/dL 6.0-8.5 Albumin, Serum 4.3 g/dL 3.5-5.5 Globulin, Total 2.5 g/dL 1.5-4.5 A/G Ratio 1.7 1.1-2.5 Bilirubin, Total 0.4 mg/dL 0.0-1.2 Alkaline Phosphatase, S 137 IU/L 39-117 AST (SGOT) 25 IU/L 0-40 ALT (SGPT) 37 IU/L 0-44 Lipid Panel - 04/27/16 15:34 Cholesterol, Total 197 mg/dL 100-199 Triglycerides 253 mg/dL 0-149 HDL Cholesterol 45 mg/dL >39 VLDL Cholesterol Jacky 51 mg/dL 5-40 LDL Cholesterol Calc 101 mg/dL 0-99 Hepatitis Panel (4) - 04/27/16 15:34 HBsAg Screen Negative Negative Hep A Ab, IgM Negative Negative Hep B Core Ab, IgM Negative Negative Hep C Virus Ab >11.0 s/co ratio 0.0-0.9 TSH - 04/27/16 15:34 TSH 1.900 uIU/mL 0.450-4.500 TSH - 11/05/16 11:36 TSH 2.340 uIU/mL 0.450-4.500 CBC With Differential/Platelet - 11/05/16 11:36 WBC 6.5 x10E3/uL 3.4-10.8 RBC 4.96 x10E6/uL 4.14-5.80 Hemoglobin 15.5 g/dL 12.6-17.7 Hematocrit 44.7 % 37.5-51.0 MCV 90 fL 79-97 MCH 31.3 pg 26.6-33.0 MCHC 34.7 g/dL 31.5-35.7 RDW 13.3 % 12.3-15.4 Platelets 208 x10E3/uL 150-379 Neutrophils 59 % Lymphs 30 % Monocytes 8 % Eos 2 % Basos 1 % Neutrophils (Absolute) 3.8 x10E3/uL 1.4-7.0 Lymphs (Absolute) 1.9 x10E3/uL 0.7-3.1 Monocytes(Absolute) 0.5 x10E3/uL 0.1-0.9 Eos (Absolute) 0.2 x10E3/uL 0.0-0.4 Baso (Absolute) 0.1 x10E3/uL 0.0-0.2 Immature Granulocytes 0 % Immature Grans (Abs) 0.0 x10E3/uL 0.0-0.1 Comp. Metabolic Panel (14) - 11/05/16 11:36 Glucose, Serum 81 mg/dL 65-99 BUN 10 mg/dL 6-24 Creatinine, Serum 0.77 mg/dL 0.76-1.27 eGFR If NonAfricn Am 110 mL/min/1.73 >59 eGFR If Africn Am 128 mL/min/1.73 >59 BUN/Creatinine Ratio 13 9-20 Sodium, Serum 140 mmol/L 134-144 Potassium, Serum 4.1 mmol/L 3.5-5.2 Chloride, Serum 98 mmol/L 96-106 Carbon Dioxide, Total 28 mmol/L 18-29 Calcium, Serum 9.2 mg/dL 8.7-10.2 Protein, Total, Serum 6.3 g/dL 6.0-8.5 Albumin, Serum 4.4 g/dL 3.5-5.5 Globulin, Total 1.9 g/dL 1.5-4.5 A/G Ratio 2.3 1.2-2.2 Bilirubin, Total 0.5 mg/dL 0.0-1.2 Alkaline Phosphatase, S 118 IU/L 39-117 AST (SGOT) 19 IU/L 0-40 ALT (SGPT) 25 IU/L 0-44 Lipid Panel - 11/05/16 11:36 Cholesterol, Total 167 mg/dL 100-199 Triglycerides 75 mg/dL 0-149 HDL Cholesterol 45 mg/dL >39 VLDL Cholesterol Jacky 15 mg/dL 5-40 LDL Cholesterol Calc 107 mg/dL 0-99 TSH - 11/05/16 11:36 TSH 2.340 uIU/mL 0.450-4.500 Encounters ACCT No. Visit Date/Time Discharge Status Pt. Type Provider Facility Loc./Unit Complaint [id number] 01/01/2013 15:28:00 01/01/2013 23:59:59 CLS Outpatient ELENA MORGAN DO [id number] 12/08/2012 16:04:00 12/08/2012 23:59:59 CLS Outpatient MIGDALIA EVERETT APRN [id number] 11/06/2012 15:13:00 11/06/2012 23:59:59 CLS Outpatient ELENA MORGAN DO [id number] 05/15/2012 09:42:00 05/15/2012 23:59:59 CLS Outpatient RUSSEL MESA APRN [id number] 03/18/2012 12:48:00 03/18/2012 23:59:59 CLS Outpatient J CARLOS DDS, SADE [id number] 03/05/2012 13:06:00 03/05/2012 23:59:59 CLS Outpatient J CARLOS BANKS, SADE [id number] 01/30/2012 13:46:00 01/30/2012 23:59:59 CLS Outpatient RUSSEL MESA APRN [id number] 01/07/2012 10:41:00 01/07/2012 23:59:59 CLS Outpatient MIGDALIA EVERETT APRN [id number] 10/15/2012 15:28:00 Document Registration [id number] 10/11/2012 13:00:00 Document Registration [id number] 07/21/2012 13:33:00 Document Registration [id number] 07/11/2012 08:15:00 Document Registration [id number] 05/06/2017 12:30:00 05/06/2017 23:59:59 CLS Outpatient VINH ADKINS [facility] [id number] 11/05/2016 09:30:00 Document Registration [id number] 12/02/2016 15:46:00 12/02/2016 17:19:00 DIS Emergency CAMRYN LEWIS, TERRI Matthews [facility] ER FELL OFF A ROOF/HEAD/ NECK PAIN [id number] 07/25/2016 11:00:00 07/25/2016 12:08:00 DIS Emergency ALPHONSO SIMON APRN [facility] ER NAIL IN L CALF [id number] 08/23/2015 16:06:00 08/23/2015 23:59:59 CLS Outpatient LINDA ALMAGUER [facility] QUICK [id number] 11/06/2016 08:42:00 Document Registration [id number] 04/28/2016 11:07:00 Document Registration [id number] 12/27/2015 10:05:00 Document Registration
[2017-06-14] MEDS ORDERED: ASPIRIN 81 MG CHEW (CHILDREN'S ASA) PO ONE (10:30)
[2017-06-14 10:35] LABS: BASOPHILS % (AUTO) 1 % (0-10); EOSINOPHILS # (AUTO) 0.2 10^3/uL (0.0-0.3); EOSINOPHILS % (AUTO) 4 % (0-10); HEMATOCRIT 41 % (40-54); HEMOGLOBIN 14.6 G/DL (13.3-17.7); LYMPHOCYTES # (AUTO) 1.7 X 10^3 (1.0-4.0); LYMPHOCYTES % (AUTO) 29 % (12-44); MEAN CORPUSCULAR HEMOGLOBIN 31 PG (25-34); MEAN CORPUSCULAR HGB CONC 35 G/DL (32-36); MEAN CORPUSCULAR VOLUME 86 FL (80-99); MEAN PLATELET VOLUME 10.3 FL (7.4-10.4); MONOCYTES # (AUTO) 0.6 X 10^3 (0.0-1.0); MONOCYTES % (AUTO) 10 % (0-12); NEUTROPHILS # (AUTO) 3.3 X 10^3 (1.8-7.8); NEUTROPHILS % (AUTO) 57 % (42-75); PLATELET COUNT 159 10^3/uL (130-400); RED BLOOD COUNT 4.78 10^6/uL (4.35-5.85); RED CELL DISTRIBUTION WIDTH 12.5 % (10.0-14.5); WHITE BLOOD COUNT 5.9 10^3/uL (4.3-11.0)
[2017-06-14 10:45] LABS: INR 0.9 (0.8-1.4)
[2017-06-14] MEDS ORDERED: KETOROLAC 30 MG/ML VIAL IVP ONE (10:45)
[2017-06-14 10:51] LABS: ALANINE AMINOTRANSFERASE 78 U/L (0-55); ALBUMIN 4.2 GM/DL (3.2-4.5); ALKALINE PHOSPHATASE 96 U/L (40-136); BILIRUBIN,TOTAL 0.5 MG/DL (0.1-1.0); BUN/CREATININE RATIO 17; CALCIUM 9.1 MG/DL (8.5-10.1); CARBON DIOXIDE 24 MMOL/L (21-32); CHLORIDE 105 MMOL/L (98-107); CREATININE SERUM 0.88 MG/DL (0.60-1.30); GFR ESTIMATED > 60; GLUCOSE 125 MG/DL (70-105); MAGNESIUM 2.1 MG/DL (1.8-2.4); POTASSIUM 4.3 MMOL/L (3.6-5.0); SODIUM 140 MMOL/L (135-145); TOTAL PROTEIN 6.9 GM/DL (6.4-8.2)
[2017-06-14 11:00] LABS: MYOGLOBIN SERUM 21.5 NG/ML (10.0-92.0)
--- NOTE | 2017-06-14 11:12 | Diagnostic Imaging Report ---
PATIENT HISTORY: Chest pain, radiating down the left arm for 3 days. TECHNIQUE: Single frontal view of the chest COMPARISON: None FINDINGS: Lung volumes are normal. No focal consolidation is seen. There is no pleural effusion or pneumothorax. The cardiac silhouette is normal in size. No acute osseous abnormality is seen. IMPRESSION: No acute pulmonary abnormality. Dictated by: Dictated on workstation # [id number]
--- NOTE | 2017-06-14 11:33 | ED Chest Pain ---
General Chief Complaint: Chest Pain Stated Complaint: CHEST PAIN/BURNING Nursing Triage Note: PT CO OF CHEST PAIN, STATES HAS HAD FOR 3 DAYS C/P IS REPRODUCABLE TO LT TOUCH, RATES PAIN 9/10. PT IS INCARCERATED AND IS CURRENTLY HAND CUFFED Nursing Sepsis Screen: No Definite Risk Source: patient, police Exam Limitations: no limitations History of Present Illness Date Seen by Provider: Jun 14, 2017 Time Seen by Provider: 10:27 Initial Comments This 47-year-old man presents to the emergency room accompanied by staff from [facility]. He is incarcerated. He complains of left upper chest pain radiating into the left shoulder for about a day and a half. He has also felt tired. He denies any shortness of breath, diaphoresis, nausea, or lightheadedness. Pain is worse with movement of the arm, palpation, and deep breathing. He has no history of coronary artery disease or other heart problems. Allergies and Home Medications Allergies Coded Allergies: Penicillins (Verified Allergy, Severe, 07/25/16) Home Medications Prednisone 20 Mg Tab, 20 MG PO DAILY Start 06/15/17 Prescribed by: TERRI LEBLANC on 06/14/17 1136 Patient Home Medication List Home Medication List Reviewed: Yes Review of Systems Constitutional: no symptoms reported EENTM: No Symptoms Reported Respiratory: See HPI Cardiovascular: See HPI Gastrointestinal: No Symptoms Reported Genitourinary: No Symptoms Reported Musculoskeletal: see HPI Skin: no symptoms reported Psychiatric/Neurological: No Symptoms Reported Endocrine: No Symptoms Reported Hematologic/Lymphatic: No Symptoms Reported Past Oadkqgq-Gqzwdq-[id number] Hx Patient Social History Alcohol Use: Denies Use Number of Drinks Today: AA Alcohol Beverage of Choice: Beer Recreational Drug Use: Yes Drug of Choice: methamphetamines Smoking Status: Current Everyday Smoker Type Used: Cigarettes 2nd Hand Smoke Exposure: Yes Recent Foreign Travel: No Contact w/Someone Who Travel: No Recent Infectious Disease Expo: No Recent Hopitalizations: No Physical Abuse: No Sexual Abuse: No Immunizations Up To Date Tetanus Booster (TDap): Less than 5yrs Seasonal Allergies Seasonal Allergies: No Past Medical History Surgeries: Yes Orthopedic Respiratory: Yes Chronic Bronchitis Cardiac: No Neurological: Yes Neuropathy Genitourinary: No Gastrointestinal: Yes Gastroesophageal Reflux Musculoskeletal: Yes Chronic Back Pain Endocrine: No HEENT: Yes ("VISION PROBLEMS") Cancer: No Psychosocial: Yes Anxiety Nursing Suicide Risk Score: 0 Integumentary: No Blood Disorders: No Physical Exam Vital Signs Vital Signs - First Documented 06/14/17 10:15 Temp 97.4 Pulse 93 Resp 18 B/P (MAP) 132/89 (103) Pulse Ox 97 Capillary Refill : Less Than 3 Seconds General Appearance: No Apparent Distress, WD/WN HEENT: PERRL/EOMI, Normal ENT Inspection Neck: Normal Inspection Respiratory: Lungs Clear, Normal Breath Sounds, No Accessory Muscle Use, No Respiratory Distress, Other (left anterior chest wall tender to palpation) Cardiovascular: Regular Rate, Rhythm, No Edema, No Murmur Gastrointestinal: Normal Bowel Sounds, Non Tender, Soft Extremity: Normal Inspection, Non Tender, No Calf Tenderness, No Pedal Edema Neurologic/Psychiatric: Alert, Oriented x3, No Motor/Sensory Deficits, Normal Mood/Affect, sack keeper II-XII Norm as Tested Skin: Normal Color, Warm/Dry Progress/Results/Core Measures Lab Results Laboratory Tests Test 06/14/17 10:00 Range/Units White Blood Count 5.9 4.3-11.0 10^3/uL Red Blood Count 4.78 4.35-5.85 10^6/uL Hemoglobin 14.6 13.3-17.7 G/DL Hematocrit 41 40-54 % Mean Corpuscular Volume 86 80-99 FL Mean Corpuscular Hemoglobin 31 25-34 PG Mean Corpuscular Hemoglobin Concent 35 32-36 G/DL Red Cell Distribution Width 12.5 10.0-14.5 % Platelet Count 159 130-400 10^3/uL Mean Platelet Volume 10.3 7.4-10.4 FL Neutrophils (%) (Auto) 57 42-75 % Lymphocytes (%) (Auto) 29 12-44 % Monocytes (%) (Auto) 10 0-12 % Eosinophils (%) (Auto) 4 0-10 % Basophils (%) (Auto) 1 0-10 % Neutrophils # (Auto) 3.3 1.8-7.8 X 10^3 Lymphocytes # (Auto) 1.7 1.0-4.0 X 10^3 Monocytes # (Auto) 0.6 0.0-1.0 X 10^3 Eosinophils # (Auto) 0.2 0.0-0.3 10^3/uL Basophils # (Auto) 0.0 0.0-0.1 10^3/uL Prothrombin Time 12.0 L 12.2-14.7 SEC INR Comment 0.9 0.8-1.4 Activated Partial Thromboplast Time 28 24-35 SEC Sodium Level 140 135-145 MMOL/L Potassium Level 4.3 3.6-5.0 MMOL/L Chloride Level 105 98-107 MMOL/L Carbon Dioxide Level 24 21-32 MMOL/L Anion Gap 11 5-14 MMOL/L Blood Urea Nitrogen 15 7-18 MG/DL Creatinine 0.88 0.60-1.30 MG/DL Estimat Glomerular Filtration Rate > 60 BUN/Creatinine Ratio 17 Glucose Level 125 H 70-105 MG/DL Calcium Level 9.1 8.5-10.1 MG/DL Magnesium Level 2.1 1.8-2.4 MG/DL Total Bilirubin 0.5 0.1-1.0 MG/DL Aspartate Amino Transf (AST/SGOT) 36 H 5-34 U/L Alanine Aminotransferase (ALT/SGPT) 78 H 0-55 U/L Alkaline Phosphatase 96 40-136 U/L Myoglobin 21.5 10.0-92.0 NG/ML Troponin I < 0.30 <0.30 NG/ML Total Protein 6.9 6.4-8.2 GM/DL Albumin 4.2 3.2-4.5 GM/DL My Orders Orders - TERRI COWAN MD Cbc With Automated Diff (06/14/17 10:27) Magnesium (06/14/17 10:27) Chest 1 View, Ap/Pa Only (06/14/17 10:27) Ekg Tracing (06/14/17 10:27) Cardiac Profile 1 (06/14/17 10:27) Comprehensive Metabolic Panel (06/14/17 10:27) Myoglobin Serum (06/14/17 10:27) Protime With Inr (06/14/17 10:27) Partial Thromboplastin Time (06/14/17 10:27) O2 (06/14/17 10:27) Monitor-Rhythm Ecg Trace Only (06/14/17 10:27) Aspirin Chewable Tablet (Baby Aspirin Ch (06/14/17 10:30) Saline Lock/Iv-Start (06/14/17 10:27) Ketorolac Injection (Toradol Injection) (06/14/17 10:45) Prednisone Tablet (Deltasone Tablet) (06/14/17 11:45) Medications Given in ED Current Medications Medications Dose Ordered Sig/Carmen Route Start Time Stop Time Status Last Admin Dose Admin Aspirin 324 mg ONCE ONCE PO 06/14/17 10:30 06/14/17 10:31 DC 06/14/17 11:00 324 MG Ketorolac Tromethamine 30 mg ONCE ONCE IVP 06/14/17 10:45 06/14/17 10:46 DC 06/14/17 11:00 30 MG Prednisone 40 mg ONCE ONCE PO 06/14/17 11:45 06/14/17 11:45 DC 06/14/17 11:41 40 MG Vital Signs/I&O 06/14/17 06/14/17 10:15 11:42 Temp 97.4 Pulse 93 91 Resp 18 19 B/P (MAP) 132/89 (103) 134/92 (103) Pulse Ox 97 97 Blood Pressure Mean: 103 Progress Note : Progress Note Patient was given aspirin. Toradol was given for pain management. This resulted in mild improvement in pain. Workup was unremarkable. Patient was thought to have musculoskeletal chest wall pain, likely costochondritis. Prednisone was initiated in the ER. Initial ECG Impression Date: Jun 14, 2017 Initial ECG Impression Time: 10:22 Initial ECG Rate: 95 Initial ECG Rhythm: S.Tach Initial ECG Impression: Normal Comment Sinus tachycardia with no ST elevation or depression. No abnormal intervals or axis deviation. Heart rate on the monitor was normal during the ER stay. Diagonstic Imaging: Xray Plain Films/CT/US/NM/MRI: chest Comments Chest x-ray viewed by me and report reviewed. See report below: NAME: SATHISH DEL ROSARIO [facility] REC#: [id number] PT STATUS: DEP ER : 1970 PHYSICIAN: TERRI COWAN MD ADMIT DATE: 06/14/17/ER Signed Date of Exam: 06/14/17 CHEST 1 VIEW, AP/PA ONLY PATIENT HISTORY: Chest pain, radiating down the left arm for 3 days. TECHNIQUE: Single frontal view of the chest COMPARISON: None FINDINGS: Lung volumes are normal. No focal consolidation is seen. There is no pleural effusion or pneumothorax. The cardiac silhouette is normal in size. No acute osseous abnormality is seen. IMPRESSION: No acute pulmonary abnormality. Dictated by: Dictated on workstation # [id number] Dict: 06/14/17 1109 Trans: 06/14/17 1202 Interpreted by: BRYANT PICKETT MD Electronically signed by: BRYANT PICKETT MD 06/14/17 1202 Departure Impression Primary Impression: Chest wall pain Disposition: HOME, SELF-CARE Condition: Improved Departure-Patient Inst. Decision time for Depature: 11:34 Referrals: NO,LOCAL PHYSICIAN (PCP/Family) Primary Care Physician Patient Instructions: Chest Pain That Is Not Caused by the Heart (DC), Costochondritis (DC) Add. Discharge Instructions: Your chest pain seems to be musculoskeletal in nature, possibly costochondritis. You may take ibuprofen up to 600 mg every 6 hours as needed and/or Tylenol ( acetaminophen) up to 1000 mg every 6 hours as needed for pain management. Take with food or milk to avoid stomach upset. Start your prednisone prescription tomorrow. Also take prednisone with food or milk, preferably earlier in the day to avoid sleep disruption or stomach upset. Follow-up with a primary care provider if not improving in the next couple of days. Return to care if symptoms are worsening. All discharge instructions reviewed with patient and/or family. Voiced understanding. Scripts Prednisone (Prednisone) 20 Mg Tab 20 MG PO DAILY, #4 TAB Start 06/15/17 Prov: TERRI COWAN MD 06/14/17 TERRI COWAN MD Jun 14, 2017 11:33
[2017-06-14] MEDS ORDERED: PRD20T PO (11:36)
[2017-06-14 11:42] VITALS: BP 134/92
[2017-06-14] MEDS ORDERED: predniSONE 20 MG TAB PO ONE (11:45)
== END 2017-06-14 11:44 | disposition home or self-care (01) ==
LOC: EDUNIT# 10:13 → ER 10:16
DX: R07.89 Other chest pain (principal); K21.9 Gastro-esophageal reflux disease without esophagitis; F41.9 Anxiety disorder, unspecified; F15.10 Other stimulant abuse, uncomplicated; F17.210 Nicotine dependence, cigarettes, uncomplicated; Z88.0 Allergy status to penicillin; Z79.52 Long term (current) use of systemic steroids
CPT/HCPCS: 36415; 71045; 80053; 83735; 83874; 84484; 85025; 85610; 85730; 93005; 93041; 96374

== ENCOUNTER 2020-05-25 13:01 | Emergency (ER) | payer SELFPAY ==
[~2020-05-25] VITALS: Ht 170.2 cm; Wt 61.2 kg
[~2020-05-25 13:01] MED LIST changes: -CLIN300C11 PO; +CLIN300C12 PO; +HYDR-4226 PO; -HYDR-757 PO; +PRD20T PO
[2020-05-25] MEDS ORDERED: fentaNYL INJ 100 MCG/2 ML AMP IVP ONE (13:15)
[2020-05-25] MEDS ORDERED: NS IV 1000 ML 1,000 ML IV SCH ×2 (13:15→14:45)
[2020-05-25 13:22] LABS: BASOPHILS # (AUTO) 0.1 10^3/uL (0.0-0.1); BASOPHILS % (AUTO) 1 % (0-10); EOSINOPHILS # (AUTO) 0.3 10^3/uL (0.0-0.3); EOSINOPHILS % (AUTO) 3 % (0-10); HEMATOCRIT 45 % (40-54); HEMOGLOBIN 15.7 g/dL (13.3-17.7); LYMPHOCYTES # (AUTO) 2.6 X 10^3 (1.0-4.0); LYMPHOCYTES % (AUTO) 28 % (12-44); MEAN CORPUSCULAR HEMOGLOBIN 31 pg (25-34); MEAN CORPUSCULAR HGB CONC 35 g/dL (32-36); MEAN CORPUSCULAR VOLUME 89 fL (80-99); MEAN PLATELET VOLUME 9.4 fL (9.0-12.2); MONOCYTES # (AUTO) 0.9 X 10^3 (0.0-1.0); MONOCYTES % (AUTO) 10 % (0-12); NEUTROPHILS # (AUTO) 5.4 X 10^3 (1.8-7.8); NEUTROPHILS % (AUTO) 58 % (42-75); PLATELET COUNT 244 10^3/uL (130-400); WHITE BLOOD COUNT 9.3 10^3/uL (4.3-11.0)
[2020-05-25 13:37] LABS: ALBUMIN 4.2 GM/DL (3.2-4.5); CHLORIDE 103 MMOL/L (98-107); POTASSIUM 3.6 MMOL/L (3.6-5.0); SODIUM 139 MMOL/L (135-145)
[2020-05-25 13:38] LABS: CALCIUM 9.1 MG/DL (8.5-10.1)
[2020-05-25 13:39] LABS: GLUCOSE 135 MG/DL (70-105)
[2020-05-25 13:40] LABS: TOTAL PROTEIN 7.3 GM/DL (6.4-8.2)
[2020-05-25 13:41] LABS: BILIRUBIN,TOTAL 0.7 MG/DL (0.1-1.0); CARBON DIOXIDE 25 MMOL/L (21-32)
[2020-05-25 13:43] LABS: ALKALINE PHOSPHATASE 102 U/L (40-136); CREATININE SERUM 1.05 MG/DL (0.60-1.30); GFR ESTIMATED > 60
[2020-05-25 13:44] LABS: BUN/CREATININE RATIO 12
--- NOTE | 2020-05-25 13:45 | ED EENT ---
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 History of Present Illness Date Seen by Provider: May 25, 2020 Time Seen by Provider: 13:02 Initial Comments 50-year-old male presents for contusion and laceration in the right periorbital region. 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 He is unsure if he lost consciousness. He called his daughter, she found him on the floor, alert and oriented with bleeding around his right eye. She drove him here. He reports a tetanus vaccine within the last 5 years. Patient is complaining of significant pain, no vision changes in the right eye. There is no laceration or contusion directly to the right eye. He reports no other injuries related to this event. Reports methamphetamine use, chronic, last time yesterday. Timing/Duration: abrupt, this morning Location: eye (R) Prearrival Treatment: no prearrival treatment Associated Symptoms: denies symptoms Allergies and Home Medications Allergies Coded Allergies: Penicillins (Verified Allergy, Severe, 07/25/16) Home Medications Cephalexin 500 Mg Tablet, 500 MG PO QID Prescribed by: TAL TAN on 05/25/20 1540 Hydrocodone/Acetaminophen 1 Each Tablet, 1 TAB PO Q6H PRN for PAIN-MODERATE (5-7 ) Prescribed by: TAL TAN on 05/25/20 1549 Prednisone 20 Mg Tab, 20 MG PO DAILY Start 06/15/17 Prescribed by: TERRI LEBLANC on 06/14/17 1136 Patient Home Medication List Home Medication List Reviewed: Yes Review of Systems Review of Systems Constitutional: no symptoms reported, see HPI Eyes: See HPI, Other (Laceration above right eye, contusion below right eye at the nasolabial fold.) Ears: No Symptoms Reported, See HPI Nose: no symptoms reported, see HPI Mouth: no symptoms reported, see HPI Throat: no symptoms reported, see HPI Respiratory: no symptoms reported, see HPI Cardiovascular: no symptoms reported, see HPI Gastrointestinal: no symptoms reported, see HPI Musculoskeletal: no symptoms reported, see HPI Skin: see HPI, other (Laceration above right eye with trace active bleeding.) All Other Systems Reviewed Negative Unless Noted: Yes Past Neetaox-Bogspn-Scffcv Hx Past Med/Social Hx: Reviewed Nursing Past Med/Soc Hx Patient Social History Alcohol Use: Denies Use Number of Drinks Today: AA Alcohol Beverage of Choice: Beer Drug of Choice: methamphetamines Smoking Status: Current Everyday Smoker Type Used: Cigarettes 2nd Hand Smoke Exposure: Yes Recent Infectious Disease Expo: No Recent Hopitalizations: No Immunizations Up To Date Tetanus Booster (TDap): Less than 5yrs Seasonal Allergies Seasonal Allergies: No Past Medical History Surgeries: Yes Orthopedic Respiratory: Yes Chronic Bronchitis Cardiac: No Neurological: Yes Neuropathy Genitourinary: No Gastrointestinal: Yes Gastroesophageal Reflux Musculoskeletal: Yes Chronic Back Pain Endocrine: No HEENT: Yes ("VISION PROBLEMS") Cancer: No Psychosocial: Yes Anxiety Integumentary: No Blood Disorders: No Physical Exam Vital Signs Vital Signs - First Documented 05/25/20 05/25/20 13:02 16:22 Temp 36.8 Pulse 70 Resp 18 B/P (MAP) 113/79 (90) Pulse Ox 97 O2 Delivery Room Air Height, Weight, BMI Height: 5'7.00" Weight: 140lbs. oz. 63.398797th; 21.00 BMI Method:Stated General Appearance: WD/WN, mild distress (Secondary to pain) Eyes: right eye other (Laceration above right eye and contusion below right eye at the nasolabial fold.); bilateral eye normal inspection, bilateral eye PERRL, bilateral eye EOMI Ears: bilateral ear auricle normal, bilateral ear canal normal, bilateral ear TM normal Nose: normal inspection; No active bleeding (None from nares) Neck: non-tender, full range of motion, supple, normal inspection Cardiovascular: normal peripheral pulses, regular rate, rhythm Respiratory: chest non-tender, lungs clear, normal breath sounds Gastrointestinal: normal bowel sounds, non tender, soft Neurologic/Psychiatric: no motor/sensory deficits, alert, normal mood/affect, oriented x 3 Skin: normal color, warm/dry Procedures/Interventions Wound Location: Face (above right eyebrow, T shape) Wound Length (cm): 4 Wound's Depth, Shape: into muscle Wound Explored: clean Irrigated w/ Saline (ccs): 500 Betadine Prep?: Yes Anesthesia: 1% Lidocaine Volume Anesthetic (ccs): 6 Wound Debrided: minimal Suture: Ethlion Suture Size: 5-0 Number of Sutures: 5 Sterile Dressing Applied?: Yes Progress Wound well approximated, patient tolerated procedure well. Sterile bulky dressing applied. Progress/Results/Core Measures Results/Orders Lab Results Laboratory Tests Test 05/25/20 13:13 05/25/20 14:41 Range/Units White Blood Count 9.3 4.3-11.0 10^3/uL Red Blood Count 5.06 4.30-5.52 10^6/uL Hemoglobin 15.7 13.3-17.7 g/dL Hematocrit 45 40-54 % Mean Corpuscular Volume 89 80-99 fL Mean Corpuscular Hemoglobin 31 25-34 pg Mean Corpuscular Hemoglobin Concent 35 32-36 g/dL Red Cell Distribution Width 11.9 10.0-14.5 % Platelet Count 244 130-400 10^3/uL Mean Platelet Volume 9.4 9.0-12.2 fL Immature Granulocyte % (Auto) 0 % Neutrophils (%) (Auto) 58 42-75 % Lymphocytes (%) (Auto) 28 12-44 % Monocytes (%) (Auto) 10 0-12 % Eosinophils (%) (Auto) 3 0-10 % Basophils (%) (Auto) 1 0-10 % Neutrophils # (Auto) 5.4 1.8-7.8 X 10^3 Lymphocytes # (Auto) 2.6 1.0-4.0 X 10^3 Monocytes # (Auto) 0.9 0.0-1.0 X 10^3 Eosinophils # (Auto) 0.3 0.0-0.3 10^3/uL Basophils # (Auto) 0.1 0.0-0.1 10^3/uL Immature Granulocyte # (Auto) 0.0 0.0-0.1 10^3/uL Sodium Level 139 135-145 MMOL/L Potassium Level 3.6 3.6-5.0 MMOL/L Chloride Level 103 98-107 MMOL/L Carbon Dioxide Level 25 21-32 MMOL/L Anion Gap 11 5-14 MMOL/L Blood Urea Nitrogen 13 7-18 MG/DL Creatinine 1.05 0.60-1.30 MG/DL Estimat Glomerular Filtration Rate > 60 BUN/Creatinine Ratio 12 Glucose Level 135 H 70-105 MG/DL Calcium Level 9.1 8.5-10.1 MG/DL Corrected Calcium 8.9 8.5-10.1 MG/DL Total Bilirubin 0.7 0.1-1.0 MG/DL Aspartate Amino Transf (AST/SGOT) 17 5-34 U/L Alanine Aminotransferase (ALT/SGPT) 23 0-55 U/L Alkaline Phosphatase 102 40-136 U/L Total Protein 7.3 6.4-8.2 GM/DL Albumin 4.2 3.2-4.5 GM/DL Urine Color YELLOW Urine Clarity CLEAR Urine pH 6.5 5-9 Urine Specific [place] 1.025 H 1.016-1.022 Urine Protein NEGATIVE NEGATIVE Urine Glucose (UA) NEGATIVE NEGATIVE Urine Ketones NEGATIVE NEGATIVE Urine Nitrite NEGATIVE NEGATIVE Urine Bilirubin NEGATIVE NEGATIVE Urine Urobilinogen 1.0 < = 1.0 MG/DL Urine Leukocyte Esterase NEGATIVE NEGATIVE Urine RBC (Auto) NEGATIVE NEGATIVE Urine RBC NONE /HPF Urine WBC 0-2 /HPF Urine Crystals NONE /LPF Urine Bacteria NEGATIVE /HPF Urine Casts NONE /LPF Urine Mucus MODERATE H /LPF Urine Other FEW SPERM H /HPF Urine Culture Indicated NO Urine Opiates Screen NEGATIVE NEGATIVE Urine Oxycodone Screen NEGATIVE NEGATIVE Urine Methadone Screen NEGATIVE NEGATIVE Urine Propoxyphene Screen NEGATIVE NEGATIVE Urine Barbiturates Screen NEGATIVE NEGATIVE Ur Tricyclic Antidepressants Screen NEGATIVE NEGATIVE Urine Phencyclidine Screen NEGATIVE NEGATIVE Urine Amphetamines Screen POSITIVE H NEGATIVE Urine Methamphetamines Screen POSITIVE H NEGATIVE Urine Benzodiazepines Screen NEGATIVE NEGATIVE Urine Cocaine Screen NEGATIVE NEGATIVE Urine Cannabinoids Screen NEGATIVE NEGATIVE My Orders Orders - TAL TAN Ct Head Wo (05/25/20 13:06) Ct Orbit Wo (05/25/20 13:06) Cbc With Automated Diff (05/25/20 13:06) Comprehensive Metabolic Panel (05/25/20 13:06) Drug Screen Stat (Urine) (05/25/20 13:06) Ua Culture If Indicated (05/25/20 13:06) Ed Iv/Invasive Line Start (05/25/20 13:06) Ns Iv 1000 Ml (Sodium Chloride 0.9%) (05/25/20 13:15) Fentanyl Inj (Sublimaze Injection) (05/25/20 13:15) Hydrocodone/Apap 7.5/325 Tab (Lortab 7. (05/25/20 14:30) Ed Iv/Invasive Line Start (05/25/20 14:31) Ns Iv 1000 Ml (Sodium Chloride 0.9%) (05/25/20 14:45) Cefazolin Injection (Ancef Injection) (05/25/20 14:45) Lidocaine 1% Inj 20 Ml (Xylocaine 1% Inj (05/25/20 15:30) Medications Given in ED Current Medications Medications Dose Ordered Sig/Carmen Route Start Time Stop Time Status Last Admin Dose Admin Acetaminophen/ Hydrocodone Bitart 1 ea ONCE ONCE PO 05/25/20 14:30 05/25/20 14:34 DC 05/25/20 14:45 1 EA Cefazolin Sodium 1000 mg/Sterile Water 10 ml @ 200 mls/hr ONCE ONCE IV 05/25/20 14:45 05/25/20 14:47 DC 05/25/20 14:45 200 MLS/HR Fentanyl Citrate 50 mcg ONCE ONCE IVP 05/25/20 13:15 05/25/20 13:16 DC 05/25/20 13:18 50 MCG Vital Signs/I&O 05/25/20 05/25/20 13:02 16:22 Temp 36.8 Pulse 70 70 Resp 18 16 B/P (MAP) 113/79 (90) 119/64 Pulse Ox 97 O2 Delivery Room Air Room Air Blood Pressure Mean: 90 Progress Progress Note : Time: 13:02 Progress Note Patient seen and evaluated, will give fentanyl 50 mcg IV for pain, labs and CT of orbits and head ordered. 1345 patient reports improvement in pain after receiving the fentanyl. Awaiting CT. [address] results [address] Cloud[address] to [facility], per patient request for referral. [address] Ojeda, [facility], reviewed CT findings. He recommended referral to ENT. [address] Damian, he reviewed the CT. He recommended further surgical treatment in approximately 1 week when the swelling has improved, however he is not available next week and recommended referral to an ENT that will be. [address] Slade at [facility], he would like to see the patient in his office tomorrow at 1:15 PM. Patient to take his disk with CT to appt. 1600 discharge instructions and return precautions reviewed with the patient. Stressed the importance that he see Dr. Slade for his follow-up appointment tomorrow. Diagnostic Imaging Diagonstic Imaging: CT Comments NAME: SATHISH DEL ROSARIO Gillian [facility] REC#: [id number] PT STATUS: REG ER : 1970 PHYSICIAN: TAL TAN ADMIT DATE: 05/25/20/ER Draft Date of Exam:05/25/20 CT HEAD WO PROCEDURE: CT head without contrast. TECHNIQUE: Multiple contiguous axial images were obtained through the brain without the use of intravenous contrast. Auto Exposure Controls were utilized during the CT exam to meet ALARA standards for radiation dose reduction. INDICATION: Contusion to the head. COMPARISON: Correlation is made with prior head CT from 12/02/2016. FINDINGS: Ventricles and sulci are within normal limits. No sulcal effacement or midline shift is identified. No acute intra-axial or extra-axial hemorrhage is detected. Cisterns are patent. There is a fracture through the anterior wall of the frontal sinus on the right side with involvement of the roof of the right orbit. The orbital roof fractures do show some inferior displacement, and contact with the superior aspect of the globe but globe does appear to be intact. The anterior wall frontal sinus fractures are depressed inward. There is fluid within the right half of frontal sinus. Overlying soft tissue defect and soft tissue gas is also seen. The globes appear to be intact. No retro-orbital hematoma is seen. There is some opacification of multiple ethmoid air cells as well. IMPRESSION: 1. No acute intracranial process is detected. 2. Fracture involving the anterior wall of the right frontal sinus as well as involvement of the right orbital roof with depressed fragments, as described. The globes appear to be intact. Diagonstic Imaging: CT Plain Films/CT/US/NM/MRI: facial bones Comments NAME: SATHISH DEL ROSARIO [facility] REC#: [id number] PT STATUS: REG ER : 1970 PHYSICIAN: TAL TAN ADMIT DATE: 05/25/20/ER Signed Date of Exam:05/25/20 CT ORBIT WO PROCEDURE: CT orbit without contrast. TECHNIQUE: Multiple contiguous axial images were obtained through the facial bones without the use of intravenous contrast. Auto Exposure Controls were utilized during the CT exam to meet ALARA standards for radiation dose reduction. INDICATION: Head injury, contusion right periorbital. FINDINGS: The globes appear symmetric and intact. No evidence for globe rupture. There are depressed comminuted fractures of the right superior orbital rim and roof extending superiorly to involve the anterior rodriguez of the right-sided frontal sinus. I cannot identify a fracture through the posterior wall of the frontal sinus. No fracture to the david gaurav. There is no post septal or retrobulbar hematoma. The medial, lateral, and inferior rodriguez of the orbit are intact. There is opacification of multiple bilateral ethmoid air cells of low density material and likely chronic. There is a fracture of the right nasal bone mildly displaced medially. The nasal septum reveals some spurring towards the right but shows no fracture. The left nasal bone is intact. The left maxillary and orbital rodriguez are intact. There is mild membrane thickening in the partially visualized bilateral maxillary sinuses at 1 to 2 mm in maximal thickness. The mastoid air cells, middle ear cavities, and external auditory canals are clear. There is no bony dislocation to the temporomandibular joints. Only portions of the mandibles are visualized but unremarkable. The zygomatic arch is intact. The sphenoid sinuses are clear. The pterygoid plates are intact. IMPRESSION: A depressed comminuted right superior orbital rim fracture extends through the anterior wall of the right frontal sinus. The globes show no traumatic deformity or rupture. There is no post septal or retrobulbar hematoma. There is a mildly displaced right nasal bone fracture with the septum nonacute. Opacification of multiple ethmoid air cells and mild maxillary sinus membrane thickening are believed chronic. Dictated by: Dictated on workstation # [id number] Dict: 05/25/20 1406 Trans: 05/25/20 1517 [id number] Interpreted by: JUAN HALL Electronically signed by: JUAN HALL 05/25/20 1517 Reviewed: Reviewed by [place] Departure Impression Primary Impression: Accident caused by powered hand tool Qualified Codes: W29.8XXA - Contact with other powered hand tools and household machinery, initial encounter Additional Impressions: Laceration of forehead Qualified Codes: S01.81XA - Laceration without foreign body of other part of head, initial encounter Frontal sinus fracture Qualified Codes: S02.19XA - Other fracture of base of skull, initial encounter for closed fracture Orbital wall fracture Qualified Codes: S02.85XA - Fracture of orbit, unspecified, initial encounter for closed fracture Fracture of orbital roof, right side, initial encounter for closed fracture Disposition: HOME, SELF-CARE Condition: Stable Departure-Patient Inst. Decision time for Depature: 15:30 Referrals: [facility],LOCAL PHYSICIAN (PCP) Primary Care Physician Patient Instructions: Facial Fracture (DC), Laceration Repair With Stitches (DC) Add. Discharge Instructions: See Dr. Page at [address] [place] [address], Office number [phone] at 1:15 pm Take the CD to your appt. Take your antibiotics as prescribed. Use the hydrocodone as prescribed for pain. Ice pack to right thigh for 20 minutes every 2 hours while awake for swelling. Return to the emergency department for new, urgent healthcare needs. All discharge instructions reviewed with patient and/or family. Voiced understanding. Scripts Hydrocodone/Acetaminophen (Hydrocodone-Acetamin 5-325 mg) 1 Each Tablet 1 TAB PO Q6H PRN for PAIN-MODERATE (5-7), #20 TAB 0 Refills Prov: TAL TAN 05/25/20 Cephalexin (Cephalexin) 500 Mg Tablet 500 MG PO QID, #20 TAB 0 Refills Prov: TAL TANP 05/25/20 TAL TAN May 25, 2020 13:45
[2020-05-25 13:46] LABS: ALANINE AMINOTRANSFERASE 23 U/L (0-55)
--- NOTE | 2020-05-25 14:06 | Diagnostic Imaging Report ---
PROCEDURE: CT head without contrast. TECHNIQUE: Multiple contiguous axial images were obtained through the brain without the use of intravenous contrast. Auto Exposure Controls were utilized during the CT exam to meet ALARA standards for radiation dose reduction. INDICATION: Contusion to the head. COMPARISON: Correlation is made with prior head CT from 12/02/2016. FINDINGS: Ventricles and sulci are within normal limits. No sulcal effacement or midline shift is identified. No acute intra-axial or extra-axial hemorrhage is detected. Cisterns are patent. There is a fracture through the anterior wall of the frontal sinus on the right side with involvement of the roof of the right orbit. The orbital roof fractures do show some inferior displacement, and contact with the superior aspect of the globe but globe does appear to be intact. The anterior wall frontal sinus fractures are depressed inward. There is fluid within the right half of frontal sinus. Overlying soft tissue defect and soft tissue gas is also seen. The globes appear to be intact. No retro-orbital hematoma is seen. There is some opacification of multiple ethmoid air cells as well. IMPRESSION: 1. No acute intracranial process is detected. 2. Fracture involving the anterior wall of the right frontal sinus as well as involvement of the right orbital roof with depressed fragments, as described. The globes appear to be intact. Dictated by: Dictated on workstation # [id number]
--- NOTE | 2020-05-25 14:20 | Diagnostic Imaging Report ---
PROCEDURE: CT orbit without contrast. TECHNIQUE: Multiple contiguous axial images were obtained through the facial bones without the use of intravenous contrast. Auto Exposure Controls were utilized during the CT exam to meet ALARA standards for radiation dose reduction. INDICATION: Head injury, contusion right periorbital. FINDINGS: The globes appear symmetric and intact. No evidence for globe rupture. There are depressed comminuted fractures of the right superior orbital rim and roof extending superiorly to involve the anterior rodriguez of the right-sided frontal sinus. I cannot identify a fracture through the posterior wall of the frontal sinus. No fracture to the david gaurav. There is no post septal or retrobulbar hematoma. The medial, lateral, and inferior rodriguez of the orbit are intact. There is opacification of multiple bilateral ethmoid air cells of low density material and likely chronic. There is a fracture of the right nasal bone mildly displaced medially. The nasal septum reveals some spurring towards the right but shows no fracture. The left nasal bone is intact. The left maxillary and orbital rodriguez are intact. There is mild membrane thickening in the partially visualized bilateral maxillary sinuses at 1 to 2 mm in maximal thickness. The mastoid air cells, middle ear cavities, and external auditory canals are clear. There is no bony dislocation to the temporomandibular joints. Only portions of the mandibles are visualized but unremarkable. The zygomatic arch is intact. The sphenoid sinuses are clear. The pterygoid plates are intact. IMPRESSION: A depressed comminuted right superior orbital rim fracture extends through the anterior wall of the right frontal sinus. The globes show no traumatic deformity or rupture. There is no post septal or retrobulbar hematoma. There is a mildly displaced right nasal bone fracture with the septum nonacute. Opacification of multiple ethmoid air cells and mild maxillary sinus membrane thickening are believed chronic. Dictated by: Dictated on workstation # [id number]
[2020-05-25] MEDS ORDERED: HYDROcodone/APAP 7.5 MG/325 MG (LORTAB, LORCET PLUS) TABLET PO ONE (14:30)
[2020-05-25] MEDS ORDERED: ceFAZolin INJECTION 1,000 MG in WATER (STERILE) FOR INJECTION 10 ML IV ONE (14:45)
[2020-05-25 14:49] LABS: BILIRUBIN,URINE NEGATIVE (NEGATIVE); CLARITY,URINE CLEAR; COLOR,URINE YELLOW; GLUCOSE, URINE (UA) NEGATIVE (NEGATIVE); KETONES,URINE NEGATIVE (NEGATIVE); LEUKOCYTE ESTERASE ,URINE NEGATIVE (NEGATIVE); NITRITE,URINE NEGATIVE (NEGATIVE); PH,URINE 6.5 (5-9); PROTEIN,URINE NEGATIVE (NEGATIVE)
[2020-05-25 15:01] LABS: BACTERIA,URINE NEGATIVE /HPF; WBC,URINE 0-2 /HPF
[2020-05-25 15:02] LABS: AMPHETAMINE SCREEN, URINE POSITIVE (NEGATIVE); BARBITURATE SCREEN URINE NEGATIVE (NEGATIVE); BENZODIAZEPINES SCREEN URINE NEGATIVE (NEGATIVE); CANNABINOID SCREEN, URINE NEGATIVE (NEGATIVE); COCAINE SCREEN URINE NEGATIVE (NEGATIVE); METHADONE STAT NEGATIVE (NEGATIVE); METHAMPHETAMINE SCREEN URINE S POSITIVE (NEGATIVE); OPIATE SCREEN URINE NEGATIVE (NEGATIVE); OXYCODONE STAT NEGATIVE (NEGATIVE); PROPOXYPHENE STAT NEGATIVE (NEGATIVE); TRICYCLIC ANTIDEPRESSANTS SCRE NEGATIVE (NEGATIVE); URINE OTHER FEW SPERM /HPF
[2020-05-25] MEDS ORDERED: LIDOCAINE 1% INJ 20 ML 20 ML VIAL INJ ONE (15:30)
[2020-05-25] MEDS ORDERED: CEPH500T PO (15:40)
[2020-05-25] MEDS ORDERED: ACHD5005 PO ×2 (15:40→15:48)
[2020-05-25 16:22] VITALS: BP 119/64
== END 2020-05-25 16:22 | disposition home or self-care (01) ==
LOC: EDUNIT# 13:01 → ER 13:02
DX: S02.19XA Other fracture of base of skull, initial encounter for closed fracture (principal); S02.121A Fracture of orbital roof, right side, initial encounter for closed fracture; S01.81XA Laceration without foreign body of other part of head, initial encounter; S01.111A Laceration without foreign body of right eyelid and periocular area, initial encounter; G89.29 Other chronic pain; M54.9 Dorsalgia, unspecified; F17.210 Nicotine dependence, cigarettes, uncomplicated; Z88.0 Allergy status to penicillin; Z79.52 Long term (current) use of systemic steroids; Z79.891 Long term (current) use of opiate analgesic; W29.8XXA Contact with other powered hand tools and household machinery, initial encounter
CPT/HCPCS: 36415; 70450; 70480; 80053; 80306; 81000; 85025